=== PATIENT | male | born 1960 | race Caucasian/White ===

== ENCOUNTER 2021-10-24 02:55 | Emergency (ER) | payer MEDICARE, SELFPAY ==
[2021-10-24 03:03] VITALS: BMI 18.6
[2021-10-24 03:06] VITALS: BP 140/97; PULSE 103; RESP 16; TEMP 37; O2SAT 96
[2021-10-24] MEDS: sulfamethoxazole-trimeth DS 160-800 mg Tablet 2 TAB PO (04:00)
[2021-10-24] MEDS: dexamethasone 4 mg Tablet 8 MG PO (04:00)
--- NOTE | 2021-10-24 04:32 | ED_ITS ---
HPI - Skin/Abscess/Foreign Bdy General: Chief complaint: Skin/Abscess/Foreign Body Stated complaint: bite on chest Time Seen by Provider: 10/24/21 03:28 Source: patient History of Present Illness: Mr. Crowder is a 61-year-old male presenting with left chest wall and breast rash, swelling, and pain. He noticed the rash inferior to his left breast a couple of days ago. He has some drainage at this point from a small opening in that area. The rash is spread upward and outward, involving his left periareolar area and left breast. There is hardness there as well. No further streaking. No fever. No vomiting. MD complaint: rash and insect bite/sting (Potentially) Onset (ago): day(s) Tetanus up to date: yes Location: chest Severity: moderate Quality: burning and aching Pain Consistency: constant Relieving factors: none Exacerbating factors: none Associated symptoms: Reports itching (Mild); Deny chills, cough, fever(s), nausea, short of breath or vomiting Review of Systems Const: Denies: fever(s) or chills ENMT: Denies: throat pain Card: Denies: chest pain GI: Denies: abdominal pain, nausea or vomiting Skin/Breast: Reports: rash, erythema and skin swelling Neuro: Denies: headache(s) Physical Exam Const: COMMON NORMALS: no acute distress GENERAL APPEARANCE: cooperative; not ill appearing HENMT: COMMON NORMALS: normocephalic and atraumatic HEAD & SCALP: normocephalic and atraumatic FACE & SINUS: normal facial exam Eye: COMMON NORMALS: Equal, round and reactive pupils present and EOMs intact bilaterally PUPIL: Yes Equal, round and reactive pupils present Neck/C-Spine: GENERAL: Yes trachea midline and No anterior neck swelling Chest: CHEST: Yes abnormal inspection of the chest Resp: COMMON NORMALS: normal respiratory effort, No use of accessory muscles and clear to auscultation bilaterally AUSCULTATION: clear to auscultation bilaterally Cardio: COMMON NORMALS: regular rate and regular rhythm RATE: regular rate RHYTHM: regular rhythm GI: COMMON NORMALS: Normal to inspection, nondistended, normoactive bowel sounds present and Soft to palpation PALPATION: Yes Soft to palpation Neuro: KRYSTA COMA SCALE: document GCS findings [place] coma scale eye opening: Spontaneous [place] coma scale verbal response: Orientated [place] coma scale motor response: Obey commands Krysta coma scale total score: 15 Skin: NARRATIVE SKIN EXAM: Exam of the chest wall reveals erythema inferior to the left breast with a small opening with serous drainage apparent. Redness stretches upward and outward involving the left lateral periareolar breast. There is no streaking further. There is hardness on palpation in 2 different areas of the left breast. GENERAL SKIN EXAM: erythema Course Vital Signs: Vital signs: Vital Signs Temperature 98.6 F 10/24/21 03:06 Pulse Rate 103 H 10/24/21 03:06 Respiratory Rate 16 10/24/21 03:06 Blood Pressure 140/97 10/24/21 03:06 Pulse Oximetry 96 10/24/21 03:06 MDM - Skin/Abscess/Foreign Bdy Medicial Decision Making No fever, no vomiting. Exam reveals mastitis. Because of the nodules, bedside ultrasound was performed, and there was no loculated or fluid-filled abscess to incise or drain apparent on ultrasound imaging. He will be treated with antibiotics. Close outpatient follow-up for wound check. Discharge Plan Discharge Patient Disposition: Home Clinical Impression: Acute mastitis Condition: Stable Prescriptions: New Bactrim DS 800-160 mg tablet 2 tab PO BID 10 Days Qty: 40 0RF Discharge Orders: Discharge ED (Routine); Ordered 10/24/21 Ordered By: Jarvis Martinez Patient Instructions: Mastitis (ED), Cellulitis (ED) Activity Restrictions/Additional Instructions: You should follow-up in 3 days for recheck. Return for fever despite 2-3 doses of antibiotics, vomiting liquids or medications, increasing redness, swelling, streaking or pain despite 3 or more doses of antibiotics, any other concerning symptoms. Coding Level of Care Code ED Vehicle Assembly Inspector for Loraine Christiansen
== END 2021-10-24 04:11 | disposition home or self-care (01) ==
PROVIDERS: Emergency Provider Emergency Medicine
DX: N61.0 Mastitis without abscess (principal)
CPT/HCPCS: 99283; J8540

== ENCOUNTER 2023-02-21 12:00 | Emergency (ER) | payer MEDICARE, SELFPAY ==
[2023-02-21] MEDS: EPINEPHrine 0.1 mg/mL SYR 10 mL 1 MG IVP ×3 (12:00→12:10)
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
--- NOTE | 2023-02-21 12:32 | PC.NURSE ---
INSTRUCTED BY DR MARTINI TO PULL IV LINES AND INTUBATION INSTRUMENTS FOR FAMILY VIEWING. SOHAIL CUETO RN PRESENT FOR REMOVAL.
--- NOTE | 2023-02-21 12:38 | PC.NURSE ---
PATIENT PRESENTS CPR IN PROGRESS. PATIENT FOUND DOWN BY FRIEND AT HOUSE. PATIENT ARRIVES AT 1153. PATIENT 1201. SEE CODE SHEET FOR CPR.
[2023-02-21] MEDS: sodium bicarbonate 8.4% 1 mEq/mL 50mL Syr 50 MEQ IVP (12:52)
--- NOTE | 2023-02-21 20:53 | PC.NURSE ---
Update from [facility], they have not been able to reach the family. Will try again soon.
== END 2023-02-21 12:06 | disposition expired ==
PROVIDERS: Emergency Provider Family Medicine
DX: I46.9 Cardiac arrest, cause unspecified (principal)
CPT/HCPCS: 31500; 94799; 99291; J0171